=== PATIENT | male | born 1990 | race American Indian/Alaskan Native ===

== ENCOUNTER 2019-08-22 08:32 | Emergency (ER) | payer SELFPAY ==
[2019-08-22] MEDS ORDERED: ACETAMINOPHEN 325 MG TAB PO ONE (09:36)
--- NOTE | 2019-08-22 09:39 | Emergency Department Report ---
ED Seizure HPI - General Chief Complaint: Seizure Stated Complaint: SEIZURE Time Seen by Provider: 08/22/19 09:21 Source: patient Mode of arrival: Stretcher Limitations: No Limitations - History of Present Illness Initial Comments: 29-year-old male with history of seizures presents to the ED after having a seizure this morning. Seizure was witnessed by patient's girlfriend. Patient is currently somewhat lethargic, however he is arousable and able to answer questions. Patient states he takes Lamictal and has been compliant. He is unsure what may have triggered the seizure. States his last seizure was a couple months ago. Patient denies any fever, recent illness, vomiting, diarrhea, URI symptoms. Patient reports a mild headache right now. MD Complaint: seizure -: This morning Witnessed:: Yes Seizure History: known seizure disorder, compliant with medication Place: home Associated Symptoms: denies other symptoms - Related Data Home Medications Medication Instructions Recorded Confirmed Last Taken Lamictal 100 mg PO BID 08/22/19 08/22/19 Unknown Allergies Allergy/AdvReac Type Severity Reaction Status Date / Time No Known Allergies Allergy Verified 08/22/19 08:41 ED Review of Systems ROS: Stated complaint: SEIZURE Other details as noted in HPI Comment: All other systems reviewed and negative Constitutional: denies: fever Gastrointestinal: denies: abdominal pain, vomiting, diarrhea Neurological: headache ED Past Medical Hx - Past Medical History Previous Medical History?: Yes Hx Seizures: Yes - Surgical History Past Surgical History?: Yes - Social History Smoking Status: Current Some Day Smoker Substance Use Type: Alcohol - Medications Home Medications: Home Medications Medication Instructions Recorded Confirmed Last Taken Type Lamictal 100 mg PO BID 08/22/19 08/22/19 Unknown History ED Physical Exam - General Limitations: No Limitations General appearance: alert, in no apparent distress - Head Head exam: Present: atraumatic, normocephalic - Eye Eye exam: Present: normal appearance, EOMI - ENT ENT exam: Present: normal exam, other (slight swelling to right lower lip) - Neck Neck exam: Present: normal inspection - Respiratory Respiratory exam: Present: normal lung sounds bilaterally. Absent: respiratory distress - Cardiovascular Cardiovascular Exam: Present: regular rate, normal rhythm - GI/Abdominal GI/Abdominal exam: Present: soft. Absent: distended, tenderness - Extremities Exam Extremities exam: Present: normal inspection - Neurological Exam Neurological exam: Present: alert, oriented X3, CN II-XII intact. Absent: motor sensory deficit - Psychiatric Psychiatric exam: Present: normal affect, normal mood - Skin Skin exam: Present: warm, dry, intact, normal color ED Course Vital Signs 08/22/19 08/22/19 08:42 15:19 Temperature 97.9 F Pulse Rate 80 67 Respiratory 16 16 Rate Blood Pressure 106/62 Blood Pressure 113/67 [Left] O2 Sat by Pulse 100 98 Oximetry - Reevaluation(s) Reevaluation #1: 08/22/19 11:37 Pt currently awake and alert. A&O x 3. Ambulated to bathroom w/o assistance, w/o difficulty. Reevaluation #2: 08/22/19 16:01 CT Head was ordered due to nurse discovering that pt had urinated and had a bowel movement in the stretcher, despite him previously walking to the bathroom unassisted. It is unclear if pt may have had a seizure. CT is normal and pt currently seems to be at baseline, answering questions appropriately. Lamictal given. Will d/c home at this time. ED Medical Decision Making - Lab Data Result diagrams: 08/22/19 10:29 08/22/19 10:29 - Radiology Data Radiology results: report reviewed, image reviewed - Medical Decision Making 29 yo M presents to ED after having a seizure at home. Hx of seizures, on lamictal. Reports compliance. On initial exam, pt seemed slightly postictal. Nurse later discovered that pt had urinated and had a bowel movement in the stretcher, despite him previously walking to the bathroom unassisted. It is unclear if pt may have had a seizure. CT was ordered and found to be normal. Pt currently seems to be at baseline, answering questions appropriately. Lamictal given. Will d/c home at this time. Nuerology f/u advised. - Differential Diagnosis seizure, electrolyte abnormality, intracranial abnormality Critical care attestation.: If time is entered above; I have spent that time in minutes in the direct care of this critically ill patient, excluding procedure time. ED Disposition Clinical Impression: Seizure Disposition: DC-01 TO HOME OR SELFCARE Is pt being admited?: No Condition: Stable Instructions: Recurrent Seizures Adult (ED) Referrals: PRIMARY CARE, [Primary Care Provider] - 3-5 Days JASON PITTS MD [Referring] - 3-5 Days Forms: Accompanied Note Time of Disposition: 15:50
[2019-08-22 11:09] LABS: BUN/Creatinine Ratio 11; Blood Urea Nitrogen 11 mg/dL (9-20); Calcium 9.5 mg/dL (8.4-10.2); Hemolysis Index 6
[2019-08-22 11:17] LABS: Basophils # (Auto) 0.1 K/mm3 (0.0-0.1); Basophils % (Auto) 0.8 % (0.0-1.8); Eosinophils % (Auto) 0.3 % (0.0-4.3); Hemoglobin 14.7 gm/dl (11.8-15.2); Lymphocytes # (Auto) 1.1 K/mm3 (1.2-5.4); Lymphocytes % (Auto) 15.3 % (13.4-35.0); Mean Corpuscular HGB Conc 33 % (32-34); Mean Corpuscular Volume 83 fl (84-94); Monocytes # (Auto) 0.3 K/mm3 (0.0-0.8); Monocytes % (Auto) 4.4 % (0.0-7.3); Platelet Count 293 K/mm3 (140-440); Red Blood Count 5.29 M/mm3 (3.65-5.03)
[2019-08-22] MEDS ORDERED: lamoTRIgine 100 MG TAB PO ONE (12:27)
[2019-08-22 15:20] VITALS: BP 113/67
--- NOTE | 2019-08-22 15:46 | Cat Scan Report ---
CT BRAIN: 08/22/2019 INDICATION / CLINICAL INFORMATION: seizure. COMPARISON: None available. FINDINGS: BRAIN/INTRACRANIAL STRUCTURES: Unenhanced CT images of the brain demonstrate no evidence of acute int racranial abnormality. Ventricles and sulci are normal in size and shape. There is no evidence of ischemic injury, hemorrhage, or mass. There are no abnormal extra-axial fluid collections. EXTRACRANIAL STRUCTURES: Unremarkable. IMPRESSION: Negative unenhanced CT of the brain. All CT scans at this location are performed using dose reduction to ALARA by means of automated expos ure control. Signer Name: Killian Dee MD Signed: 08/22/2019 3:41 PM Workstation Name: [id number]
== END 2019-08-22 16:06 | disposition home or self-care (01) ==
LOC: ED 08:32
DX: R56.9 Unspecified convulsions (principal); R53.83 Other fatigue; F17.200 Nicotine dependence, unspecified, uncomplicated; Z79.899 Other long term (current) drug therapy
CPT/HCPCS: 36415; 70450; 80048; 85025; 99284